=== PATIENT | male | born 1995 | race Caucasian/White ===

== ENCOUNTER 2017-06-17 12:16 | Inpatient (IN) | payer BC, OTHER ==
[~2017-06-17] VITALS: Ht 165.1 cm; Wt 62.6 kg
[2017-06-17] MEDS ORDERED: MAG HYDROX/AL HYDROX/SIMETH 30 ML LIQUID UDC PO PRN (19:45)
[2017-06-17] MEDS ORDERED: ACETAMINOPHEN 325 MG TABLET PO PRN (19:45)
[2017-06-17] MEDS ORDERED: ONDANSETRON 4 MG/2 ML VIAL IM PRN (19:45)
[2017-06-17] MEDS ORDERED: LORAZEPAM 1 MG TABLET PO PRN (19:45)
[2017-06-17] MEDS ORDERED: LORAZEPAM 2 MG/1 ML VIAL IM PRN (19:45)
[2017-06-17] MEDS ORDERED: LOPERAMIDE HCL 2 MG CAPSULE PO PRN ×2 (19:45)
[2017-06-17] MEDS ORDERED: MIRALAX 17 GM POWD.PACK PO PRN (19:45)
[2017-06-17] MEDS ORDERED: THIAMINE HCL 200 MG/2 ML VIAL IM ONE ×2 (19:45→21:00)
[2017-06-17] MEDS ORDERED: BUPRENORPHINE HCL 2 MG TAB.SUBL SL PRN (19:45)
[2017-06-17] MEDS ORDERED: MAGNESIUM HYDROXIDE 30 ML LIQUID UDC PO PRN (19:45)
[2017-06-17 20:00] VITALS: BP 135/81
[2017-06-17 20:20] LABS: *AMPHETAMINE, URINE NEGATIVE (NEGATIVE); *BARBITURATE, URINE NEGATIVE (NEGATIVE); *CANNABINOID, URINE POSITIVE (NEGATIVE); *COCCAINE, URINE POSITIVE (NEGATIVE); *OPIATE, URINE POSITIVE (NEGATIVE); *PHENCYCLIDINE SCREEN,URINE NEGATIVE (NEGATIVE)
[2017-06-17] MEDS ORDERED: LORAZEPAM 1 MG TABLET PO SCH (21:00)
[2017-06-17 21:07] LABS: BASOPHILS # (AUTO) 0.2 K/uL (0.0-8.0); BASOPHILS % (AUTO) 2.4 % (0.0-2.0); EOSINOPHILS # (AUTO) 0.3 K/uL (0.0-0.7); EOSINOPHILS % (AUTO) 4.1 % (0.0-7.0); HEMOGLOBIN 14.7 G/DL (14.0-18.0); LYMPHOCYTES # (AUTO) 2.2 K/UL (0.8-4.8); LYMPHOCYTES % (AUTO) 31.3 % (20.5-51.5); MEAN CORPUSCULAR HEMOGLOBIN 30.1 UUG (27.0-31.0); MEAN CORPUSCULAR HGB CONC 33 g/dL (32.0-37.0); MEAN CORPUSCULAR VOLUME 90.1 FL (82.0-92.0); MONOCYTES # (AUTO) 0.6 K/UL (0.1-1.30); MONOCYTES % (AUTO) 8.4 % (0.0-11.0); NEUTROPHILS # (AUTO) 3.9 K/UL (1.8-8.9); NEUTROPHILS % (AUTO) 53.8 % (38.5-71.5); PLATELET COUNT (AUTO) 270 K/UL (150-450); RED BLOOD CELL COUNT(AUTO) 4.88 MIL/UL (4.7-6.1); WHITE BLOOD COUNT (AUTO) 7.2 K/UL (4.0-11.2)
[2017-06-17 21:13] LABS: ETHANOL < 3 MG/DL (0-0)
[2017-06-17 21:17] LABS: ALANINE AMINOTRANSFERASE 26 U/L (16-63); ALKALINE PHOSPHATASE 89 U/L (50-136); AMYLASE 68 U/L (25-115); ASPARTATE AMINOTRANSFERASE 18 U/L (15-37); BILIRUBIN,TOTAL 0.4 mg/dL (0.2-1.0); CARBON DIOXIDE 25 mmol/L (21-32); CHLORIDE 106 mmol/L (98-107); CREATININE 1.1 mg/dL (0.6-1.3); GLUCOSE 142 mg/dL (74-106); MAGNESIUM 2.2 mg/dL (1.8-2.4); POTASSIUM 3.8 mmol/L (3.5-5.1); TOTAL PROTEIN, SERUM 7.3 g/dL (6.4-8.2); UREA NITROGEN, BLOOD 11 mg/dL (7-18)
[2017-06-17] MEDS: METHOCARBAMOL 750 MG TABLET PO PRN (21:53)
[2017-06-17] MEDS: diphenhydrAMINE 50 MG CAPSULE PO PRN (23:00)
[2017-06-17] MEDS: CLONIDINE HCL 0.1 MG TABLET PO PRN (23:00)
[2017-06-18] VITALS: BP 111/67
[2017-06-18 04:00] VITALS: BP 115/63
[2017-06-18 08:00] VITALS: BP 126/79
[2017-06-18] MEDS ORDERED: TUBERCULIN,PURIF.PROT.DERIV. 5 TU/0.1 ML TEST ID ONE (09:00)
[2017-06-18] MEDS: BUPRENORPHINE HCL 2 MG TAB.SUBL SL SCH ×3 (09:38→20:59)
[2017-06-18] MEDS: LORAZEPAM 1 MG TABLET PO SCH ×4 (09:38→20:58)
[2017-06-18] MEDS: THIAMINE HCL 100 MG TABLET PO SCH (09:38)
[2017-06-18] MEDS: FOLIC ACID 1 MG TABLET PO SCH (09:38)
[2017-06-18] MEDS: MULTIVITAMINS,THERAPEUTIC TABLET PO SCH (09:38)
[2017-06-18 12:00] VITALS: BP 102/72
[2017-06-18] MEDS: ONDANSETRON ODT 4 MG TAB.RAPDIS SL PRN ×2 (15:28→20:59)
[2017-06-18 16:00] VITALS: BP 130/65
[2017-06-18 20:00] VITALS: BP 127/68
[2017-06-18] MEDS: GABAPENTIN 300 MG CAPSULE PO SCH (20:58)
[2017-06-18] MEDS: METHOCARBAMOL 750 MG TABLET PO PRN (20:58)
[2017-06-18] MEDS ORDERED: QUETIAPINE FUMARATE 200 MG TABLET PO SCH (21:00)
[2017-06-19] VITALS (7 sets, daily range): BP systolic 119–145; BP diastolic 62–92
[2017-06-19] MEDS: LORAZEPAM 1 MG TABLET PO PRN ×2 (05:04→22:36)
[2017-06-19] MEDS: THIAMINE HCL 100 MG TABLET PO SCH (09:00)
[2017-06-19] MEDS: LORAZEPAM 1 MG TABLET PO SCH ×3 (09:00→20:57)
[2017-06-19] MEDS: GABAPENTIN 300 MG CAPSULE PO SCH ×2 (09:00→20:57)
[2017-06-19] MEDS: FOLIC ACID 1 MG TABLET PO SCH (09:00)
[2017-06-19] MEDS: MULTIVITAMINS,THERAPEUTIC TABLET PO SCH (09:00)
[2017-06-19] MEDS ORDERED: BUPRENORPHINE HCL 2 MG TAB.SUBL SL SCH (09:00)
[2017-06-19 09:06] LABS: HEPATITIS B SURFACE AG Negative (Negative)
[2017-06-19] MEDS: BUPRENORPHINE HCL 2 MG TAB.SUBL SL SCH ×2 (15:09→20:57)
[2017-06-19] MEDS: METHOCARBAMOL 750 MG TABLET PO PRN (20:57)
[2017-06-19] MEDS ORDERED: QUETIAPINE FUMARATE 200 MG TABLET PO SCH (21:00)
[2017-06-19] MEDS ORDERED: QUETIAPINE FUMARATE 100 MG TABLET PO SCH (21:00)
[2017-06-19] MEDS: diphenhydrAMINE 50 MG CAPSULE PO PRN (22:36)
[2017-06-20 00:30] VITALS: BP 132/83
[2017-06-20 04:15] VITALS: BP 129/89
[2017-06-20 08:00] VITALS: BP 136/68
[2017-06-20] MEDS ORDERED: BUPRENORPHINE HCL 2 MG TAB.SUBL SL SCH (09:00)
[2017-06-20] MEDS: MULTIVITAMINS,THERAPEUTIC TABLET PO SCH (09:02)
[2017-06-20] MEDS: FOLIC ACID 1 MG TABLET PO SCH (09:02)
[2017-06-20] MEDS: LORAZEPAM 1 MG TABLET PO SCH ×3 (09:02→17:31)
[2017-06-20] MEDS: THIAMINE HCL 100 MG TABLET PO SCH (09:02)
[2017-06-20] MEDS: GABAPENTIN 300 MG CAPSULE PO SCH ×3 (09:02→20:17)
[2017-06-20 12:00] VITALS: BP 143/93
[2017-06-20] MEDS: DICYCLOMINE HCL 20 MG TABLET PO PRN ×2 (12:28→20:17)
[2017-06-20] MEDS: IBUPROFEN 600 MG TABLET PO PRN (12:31)
[2017-06-20] MEDS: METHOCARBAMOL 750 MG TABLET PO PRN ×2 (12:31→20:17)
[2017-06-20] MEDS: BUPRENORPHINE HCL 2 MG TAB.SUBL SL SCH ×3 (14:31→20:16)
[2017-06-20 16:00] VITALS: BP 151/82
[2017-06-20 20:00] VITALS: BP 138/97
[2017-06-20] MEDS: diphenhydrAMINE 50 MG CAPSULE PO PRN (20:53)
[2017-06-20] MEDS ORDERED: LORAZEPAM 1 MG TABLET PO SCH (21:00)
[2017-06-21] MEDS: CLONIDINE HCL 0.1 MG TABLET PO PRN (03:51)
[2017-06-21 04:00] VITALS: BP 133/91
[2017-06-21] MEDS: METHOCARBAMOL 750 MG TABLET PO PRN ×2 (05:03→16:54)
[2017-06-21 08:00] VITALS: BP 121/58
[2017-06-21] MEDS: BUPRENORPHINE HCL 2 MG TAB.SUBL SL SCH ×3 (08:44→20:35)
[2017-06-21] MEDS: MULTIVITAMINS,THERAPEUTIC TABLET PO SCH (08:44)
[2017-06-21] MEDS: FOLIC ACID 1 MG TABLET PO SCH (08:44)
[2017-06-21] MEDS: GABAPENTIN 300 MG CAPSULE PO SCH ×2 (08:44→15:08)
[2017-06-21] MEDS: LORAZEPAM 1 MG TABLET PO SCH ×2 (08:44→15:08)
[2017-06-21] MEDS: THIAMINE HCL 100 MG TABLET PO SCH (08:47)
[2017-06-21] MEDS ORDERED: BUPRENORPHINE HCL 2 MG TAB.SUBL SL SCH (09:00)
[2017-06-21 12:00] VITALS: BP_SYST 136; BP_SYST 89; BP_DIAS 48; BP_DIAS 88
[2017-06-21] MEDS ORDERED: LORAZEPAM 1 MG TABLET PO ONE (12:00)
[2017-06-21] MEDS: DICYCLOMINE HCL 20 MG TABLET PO SCH ×2 (15:08→20:35)
[2017-06-21 16:00] VITALS: BP 132/84
[2017-06-21] MEDS: IBUPROFEN 600 MG TABLET PO PRN (16:54)
[2017-06-21 20:11] VITALS: BP 128/77
[2017-06-21] MEDS: QUETIAPINE FUMARATE 100 MG TABLET PO SCH (20:35)
[2017-06-21] MEDS ORDERED: QUETIAPINE FUMARATE 200 MG TABLET PO SCH ×2 (21:00)
[2017-06-21] MEDS ORDERED: GABAPENTIN 300 MG CAPSULE PO SCH (21:00)
[2017-06-21] MEDS ORDERED: LORAZEPAM 1 MG TABLET PO SCH (21:00)
[2017-06-21] MEDS: diphenhydrAMINE 50 MG CAPSULE PO PRN (23:32)
[2017-06-22 00:18] VITALS: BP 124/73
[2017-06-22 04:05] VITALS: BP 119/77
[2017-06-22 08:00] VITALS: BP 124/79
[2017-06-22] MEDS ORDERED: BUPRENORPHINE HCL 2 MG TAB.SUBL SL SCH (09:00)
[2017-06-22] MEDS: FOLIC ACID 1 MG TABLET PO SCH (09:05)
[2017-06-22] MEDS: DICYCLOMINE HCL 20 MG TABLET PO SCH ×3 (09:05→20:32)
[2017-06-22] MEDS: LORAZEPAM 1 MG TABLET PO SCH ×2 (09:05→20:31)
[2017-06-22] MEDS: MULTIVITAMINS,THERAPEUTIC TABLET PO SCH (09:05)
[2017-06-22] MEDS: THIAMINE HCL 100 MG TABLET PO SCH (09:05)
[2017-06-22] MEDS: BUPRENORPHINE HCL 2 MG TAB.SUBL SL SCH ×2 (09:06→20:32)
[2017-06-22] MEDS: GABAPENTIN 300 MG CAPSULE PO SCH ×3 (09:06→20:32)
[2017-06-22] MEDS: METHOCARBAMOL 750 MG TABLET PO PRN (11:49)
[2017-06-22] MEDS: CLONIDINE HCL 0.1 MG TABLET PO PRN (11:50)
[2017-06-22 12:00] VITALS: BP 138/90
[2017-06-22] MEDS: BACLOFEN 10 MG TABLET PO SCH ×2 (14:55→20:31)
[2017-06-22 16:00] VITALS: BP 141/93
[2017-06-22 20:00] VITALS: BP 156/95
[2017-06-22] MEDS: QUETIAPINE FUMARATE 100 MG TABLET PO SCH (20:32)
[2017-06-22] MEDS: CLONIDINE HCL 0.1 MG TABLET PO SCH (20:32)
[2017-06-23] VITALS: BP 125/63
[2017-06-23 08:00] VITALS: BP 148/91
[2017-06-23] MEDS: BACLOFEN 10 MG TABLET PO SCH (08:57)
[2017-06-23] MEDS: DICYCLOMINE HCL 20 MG TABLET PO SCH ×3 (08:57→20:13)
[2017-06-23] MEDS: GABAPENTIN 300 MG CAPSULE PO SCH ×2 (08:57→14:46)
[2017-06-23] MEDS: MULTIVITAMINS,THERAPEUTIC TABLET PO SCH (08:57)
[2017-06-23] MEDS: THIAMINE HCL 100 MG TABLET PO SCH (08:57)
[2017-06-23] MEDS: FOLIC ACID 1 MG TABLET PO SCH (08:57)
[2017-06-23] MEDS: CLONIDINE HCL 0.1 MG TABLET PO SCH ×2 (08:58→20:13)
[2017-06-23] MEDS ORDERED: LORAZEPAM 1 MG TABLET PO SCH (09:00)
[2017-06-23] MEDS ORDERED: BUPRENORPHINE HCL 2 MG TAB.SUBL SL SCH (09:00)
[2017-06-23 12:00] VITALS: BP 138/88
[2017-06-23] MEDS: BACLOFEN 20 MG TABLET PO SCH ×2 (14:46→20:13)
[2017-06-23] MEDS ORDERED: QUET100T PO (15:57)
[2017-06-23] MEDS ORDERED: DIPH50CA37 PO (15:57)
[2017-06-23] MEDS ORDERED: HYDR25CA PO (15:57)
[2017-06-23] MEDS ORDERED: CLON0.1T14 PO (15:57)
[2017-06-23] MEDS ORDERED: DICY20TA28 PO (15:57)
[2017-06-23] MEDS ORDERED: IBUP-1955 PO (15:57)
[2017-06-23] MEDS ORDERED: METH-406 PO (15:57)
[2017-06-23] MEDS ORDERED: GABA-534 PO ×2 (15:57)
[2017-06-23 16:00] VITALS: BP 149/63
[2017-06-23] MEDS ORDERED: HYDROXYZINE PAMOATE 25 MG CAPSULE PO PRN (16:00)
[2017-06-23 20:09] VITALS: BP 153/79
[2017-06-23] MEDS: QUETIAPINE FUMARATE 100 MG TABLET PO SCH (20:14)
[2017-06-23] MEDS ORDERED: GABAPENTIN 300 MG CAPSULE PO SCH (21:00)
[2017-06-24 08:00] VITALS: BP 113/60
[2017-06-24] MEDS: DICYCLOMINE HCL 20 MG TABLET PO SCH (08:45)
[2017-06-24] MEDS: THIAMINE HCL 100 MG TABLET PO SCH (08:45)
[2017-06-24] MEDS: GABAPENTIN 300 MG CAPSULE PO SCH (08:45)
[2017-06-24] MEDS: BACLOFEN 20 MG TABLET PO SCH (08:45)
[2017-06-24] MEDS: MULTIVITAMINS,THERAPEUTIC TABLET PO SCH (08:45)
[2017-06-24 08:46] VITALS: BP 113/65
[2017-06-24] MEDS: CLONIDINE HCL 0.1 MG TABLET PO SCH (08:46)
[2017-06-24] MEDS: FOLIC ACID 1 MG TABLET PO SCH (08:46)
== END 2017-06-24 09:33 | disposition other institution (70) | DRG 895 ==
LOC: SRC 18:02
PROVIDERS: ADMIT Internal Medicine; ATTEND Internal Medicine
PROC: HZ2ZZZZ Detoxification Services for Substance Abuse Treatment (ICD-10-PCS; principal; 2017-06-17)
PROC: HZ31ZZZ Individual Counseling for Substance Abuse Treatment, Behavioral (ICD-10-PCS; 2017-06-20)
DX: F10.232 Alcohol dependence with withdrawal with perceptual disturbance (principal); I15.9 Secondary hypertension, unspecified; F14.20 Cocaine dependence, uncomplicated; F39 Unspecified mood [affective] disorder; F11.23 Opioid dependence with withdrawal; F13.232 Sedative, hypnotic or anxiolytic dependence with withdrawal with perceptual disturbance; Y90.9 Presence of alcohol in blood, level not specified; Z91.89 Other specified personal risk factors, not elsewhere classified; J45.20 Mild intermittent asthma, uncomplicated; Z81.1 Family history of alcohol abuse and dependence; Z83.3 Family history of diabetes mellitus; Z81.8 Family history of other mental and behavioral disorders; G47.00 Insomnia, unspecified; Z59.1 Inadequate housing; Z91.14 Patient's other noncompliance with medication regimen; F17.210 Nicotine dependence, cigarettes, uncomplicated; F91.9 Conduct disorder, unspecified; Z79.899 Other long term (current) drug therapy
CPT/HCPCS: 36415; 80307; 80349; 80353; 80361; 83735; 85025; 86592; 86705; 86803; 87340; 87806; A4663; G0480; J3411; J7030; Q0162; Q0163